=== PATIENT | female | born 1955 | race Caucasian/White ===

== ENCOUNTER 2016-11-07 09:14 | Emergency (ER) | payer BC ==
[2016-11-07] MEDS ORDERED: Ondansetron 4 MG/2 ML SDV IVPUSH STA (09:43)
[2016-11-07] MEDS ORDERED: Morphine 4 MG/ML Syringe IVPUSH ONE ×4 (09:43→14:23)
[2016-11-07] MEDS ORDERED: Sodium Chloride 0.9% 1,000 ML IV ONE (09:43)
[2016-11-07] MEDS ORDERED: Tamsulosin 0.4 MG Cap.ER PO ONE (10:17)
[2016-11-07] MEDS ORDERED: Ketorolac 30 MG/ML SDV IVPUSH ONE (10:17)
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
[2016-11-07] MEDS: Ondansetron 4 MG/2 ML SDV IVPUSH STA ×2 (10:28→10:30)
[2016-11-07 13:06] VITALS: BP 125/82
[2016-11-07] MEDS ORDERED: Morphine 4 MG/ML Syringe ONE (14:38)
== END 2016-11-07 14:40 ==
LOC: CC.ED 09:14
DX: N13.2 Hydronephrosis with renal and ureteral calculous obstruction (principal); Z79.82 Long term (current) use of aspirin; Z79.899 Other long term (current) drug therapy
CPT/HCPCS: 36415; 74176; 80053; 81001; 85025; 96361; 96374; 96375; 96376; 99285; A9270; J1885; J2270; J2405; J7030